=== PATIENT | female | born 2005 | race Caucasian/White ===

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

== ENCOUNTER 2024-04-18 15:54 | Outpatient (CLI) | payer OTHER, SELFPAY ==
--- OUTSIDE RECORDS SUMMARY | 2024-04-18 15:56 | XMS_ITS | Referral Summary ---
Author Organization [facility] Address [address] [place] [address] Phone Care Team Providers Care Thread Twister Name Role Phone Unavailable Primary Care Provider Jose e Source Comments [employer] (P) is fully rolled out on [employer]. Last update 10/16/08.[facility] Allergies No known active allergies Medications * Be aware that medications may not be up to date as of this document. Always verify current medications with patient. No known medications Social History Tobacco Use Types Packs/Day Years Used Date Smoking Tobacco: Never Assessed Comments Unknown Sex and Gender Information Value Date Recorded Sex Assigned at Not on file Legal Sex Female 11:41 AM ERP CONSULTANT Gender Identity Not on file Sexual Orientation Not on file Last Filed Vital Signs Vital Sign Reading Time Taken Comments Blood Pressure 114/67 05/13/2023 1:27 PM ERP CONSULTANT Pulse 78 05/13/2023 1:27 PM ERP CONSULTANT Temperature 36.7 C (98.1 F) 05/13/2023 11:23 AM ERP CONSULTANT Respiratory Rate 19 05/13/2023 11:24 AM ERP CONSULTANT Oxygen Saturation 97% 05/13/2023 1:27 PM ERP CONSULTANT Inhaled Oxygen Concentration - - Weight 54.4 kg (120 lb) 05/13/2023 11:23 AM ERP CONSULTANT Height - - Body Mass Index - - Plan of Treatment Not on file Insurance [employer]
--- OUTSIDE RECORDS SUMMARY | 2024-04-18 15:56 | XMS_ITS | Clinical Summary ---
Author Organization [facility] Address [address] [place] [address] Phone Care Team Providers Care Certified Orthotic Fitter Name Role Phone Unavailable Primary Care Provider Unavailabl e Source Comments [employer] is fully rolled out on [employer]. Last update 10/16/08.[facility] Allergies No known active allergies Medications * Be aware that medications may not be up to date as of this document. Always verify current medications with patient. 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 INSPECTOR Gender Identity Not on file Sexual Orientation Not on file Last Filed Vital Signs Vital Sign Reading Time Taken Comments Blood Pressure 114/67 05/13/2023 1:27 PM HEALTH INSPECTOR Pulse 78 05/13/2023 1:27 PM HEALTH INSPECTOR Temperature 36.7 C (98.1 F) 05/13/2023 11:23 AM HEALTH INSPECTOR Respiratory Rate 19 05/13/2023 11:24 AM HEALTH INSPECTOR Oxygen Saturation 97% 05/13/2023 1:27 PM HEALTH INSPECTOR Inhaled Oxygen Concentration - - Weight 54.4 kg (120 lb) 05/13/2023 11:23 AM HEALTH INSPECTOR Height - - Body Mass Index - - Plan of Treatment Health Maintenance Due Date Last Done Comments Well Child Check 09/27/2007 Chlamydia & Gonorrhea Screening 2016 Periodontal Maintenance 2018 HIV Screening 09/27/2019 PREVENTATIVE VISIT 2022 HEALTH MAINTENANCE PROTOCOL 09/27/2023 Imm: COVID-19 ( season) 2024 04/14/2021, 10/19/2020, 09/28/2020 Imm: Flu (#1) 01/13/2024 05/22/2012, 03/08/2011 Imm: DTaP/Tdap (4 - Td or Tdap) 01/13/2026 01/14/2016, 10/07/2009, 01/26/2006 Imm: Zoster (1 of 2) 2054 Imm: Hib Completed 01/26/2006 Imm: Pneumonia Peds or At-Risk less than 65 years Aged Out 01/26/2006 No longer chaparro gible based on patient's age to complete this topic Imm: HepA Completed 09/04/2008, 09/12/2006 Imm: HPV Completed 01/14/2016, 01/12/2015 Imm: HepB Completed 07/21/2019, 11/06/2013, 07/25/2005 Imm: Meningitis Completed 12/22/2020, 01/14/2016 Insurance [employer]
--- OUTSIDE RECORDS SUMMARY | 2024-04-18 15:56 | XMS_ITS | Continuity of Care Document ---
Author Name [facility] Organization [facility] Care Team Providers Care Felt Finisher Name Role Phone [facility] Unavailable Unavailable Medications Combined list of outpatient medications from Department of Defense and Veterans Affairs facilities.Medications provided include 1) outpatient medications from the last 15 months, and 2) patient-reported medications. Medication Details Route Status Patient Instructions Prescription Expires Prescription Number Last Dispense Date Ordering Provider Order Date Order Qty Source AMPHETAMINE SALT COMBO (DEXTROAMPH ETAMINE/AMP HETAMINE), 15 MG, TABLET, ORAL, LARSON, 100 ea. BOTTLE Active [id number] 2023 30 Pharmac y Data Transac tion Service Facilit y BACITRACIN (BACITRACIN ), 500 UNIT/G, OINT. (G), OPHTHALMIC, PERRIGO CO[employer] 3.5 g TUBE Cancele d [id number] : 2023 0 Pharmac y Data Transac tion Service Facilit y DEXTROAMPHE TAMINE-AMPH ET ER (dextroamph etamine sulf-saccha rate/amphet amine sulf-aspart ate), 20 MG, CAP ER 24H, ORAL, AMERIGEN/AN I PH, 100 ea. BOTTLE Cancele d [id number] : 2023 0 Pharmac y Data Transac tion Service Facilit y DEXTROAMPHE TAMINE-AMPH ET ER (dextroamph etamine sulf-saccha rate/amphet amine sulf-aspart ate), 20 MG, CAP ER 24H, ORAL, AMERIGEN/AN I PH, 100 ea. BOTTLE Cancele d [id number] : 2023 0 Pharmac y Data Transac tion Service Facilit y DEXTROAMPHE TAMINE-AMPH ET ER (dextroamph etamine sulf-saccha rate/amphet amine sulf-aspart ate), 30 MG, CAP ER 24H, ORAL, AMNEAL PHARMACE, 100 ea. BOTTLE Cancele d [id number] : 2023 0 Pharmac y Data Transac tion Service Facilit y DEXTROAMPHE TAMINE-AMPH ET ER (dextroamph etamine sulf-saccha rate/amphet amine sulf-aspart ate), 30 MG, CAP ER 24H, ORAL, [employer], 100 ea. BOTTLE Active [id number] 2023 30 Pharmac y Data Transac tion Service Facilit y DEXTROAMPHE TAMINE-AMPH ET ER (dextroamph etamine sulf-saccha rate/amphet amine sulf-aspart ate), 30 MG, CAP ER 24H, ORAL, HANDLEY PHARMACE, 100 ea. BOTTLE Active [id number] 2023 30 Pharmac y Data Transac tion Service Facilit y DEXTROAMPHE TAMINE-AMPH ET ER (dextroamph etamine sulf-saccha rate/amphet amine sulf-aspart ate), 30 MG, CAP ER 24H, ORAL, [employer]LEY [employer]ARMACE, 100 ea. BOTTLE Cancele d [id number] : 2023 0 Pharmac y Data Transac tion Service Facilit y DEXTROAMPHE TAMINE-AMPH ET ER (dextroamph etamine sulf-saccha rate/amphet amine sulf-aspart ate), 30 MG, CAP ER 24H, ORAL, SANDOZ, 100 ea. BOTTLE Active [id number] 2023 30 Pharmac y Data Transac tion Service Facilit y DEXTROAMPHE TAMINE-AMPH ET ER (dextroamph etamine sulf-saccha rate/amphet amine sulf-aspart ate), 30 MG, CAP ER 24H, ORAL, SANDOZ, 100 ea. BOTTLE Cancele d [id number] : 2023 0 Pharmac y Data Transac tion Service Facilit y DEXTROAMPHE TAMINE-AMPH ET ER (dextroamph etamine sulf-saccha rate/amphet amine sulf-aspart ate), 30 MG, CAP ER 24H, ORAL, SANDOZ, 100 ea. BOTTLE Active [id number] 2022 30 Pharmac y Data Transac tion Service Facilit y ERYTHROMYCI N (ERYTHROMYC IN BASE/ETHANO L), 2%, GEL (GM), TOPICAL, PERRIGO [employer]., 30 g JAR Cancele d [id number] : 2023 0 Pharmac y Data Transac tion Service Facilit y Social History Combined list of available smoking, tobacco, and other social history from Department of Defense and Veterans Affairs facilities. Social History Type Response Date Comment Sour e This section is an empty social history section. DoD
--- OUTSIDE RECORDS SUMMARY | 2024-04-18 15:56 | XMS_ITS | Continuity of Care Document ---
Author Organization [facility] Address [address] [place] [address] Phone Care Team Providers Care Preschool Teacher Aide Name Role Phone Reji Vogel MD Unavailable Unavailable Procedures Procedure Date Office/Outpatient Visit,[place], [facility] 2020 Advance Directives Directive Yes / No Effective Date File Name No Information Encounters Encounter Description Practice Location Reason(s) For Visit Diagnoses Date Provider Providers Copied on Encounter [facility], [address], [place], [place], [id number], [place] tel:[phone] No Information Jaspreet Mendoza. [facility] [place], [address] [place] [address], [place] [address], [place], [place], [id number] , [place]. tel:[phone] Office/Outpat ient Visit,[facility], [facility], [address], [facility] [place] [place], [id number], [place] tel:[phone] [facility] No Information Jaspreet Mendoza. [facility], [address] [place] [address], [facility] [address], [place], [place], [id number] , [place]. tel:[phone] Referring Provider: Yobani Hart, [facility] [address] [place], [address]. tel:[phone] Family History Family Member Type Diagnosis Age At Onset No Information Payers Payer name Insurance type Covered green party ID Authoriza tion(s) No Information Social [...]
[2024-04-18 21:14] LABS: Chlamydia DNA Amplified* NOT DETECTED (No Detected); GC DNA Amplified* NOT DETECTED (No Detected)
== END 2024-04-18 15:55 | disposition home or self-care (01) ==
LOC: NFLDREF 15:54
PROVIDERS: PCP Family Medicine; Visit Provider Registered Nurse
DX: N92.6 Irregular menstruation, unspecified (principal); Z11.3 Encounter for screening for infections with a predominantly sexual mode of transmission
CPT/HCPCS: 87491; 87591

== ENCOUNTER 2024-05-05 14:56 | Outpatient (CLI) | payer OTHER, SELFPAY ==
--- NOTE | 2024-05-05 15:00 | CRLHL7_ITS ---
For Patients: As a result of the Century Cures Act, medical imaging exams and procedure reports are released immediately into your electronic medical record. You may view this report before your referring provider. If you have questions, please contact your health care provider. INDICATION: Irregular menstruation. TECHNIQUE: Ultrasound pelvis transabdominal and transvaginal for better assessment or to better visualize the endometrium. Real-time sonographic images with spectral and color Doppler imaging of the ovaries were obtained. COMPARISON: None. FINDINGS: Uterus: 7.4 x 3.7 x 5.0 cm. Normal echotexture of the myometrium. No masses. Endometrium: Transvaginal imaging was performed to better evaluate the endometrium. A short segment of the left arm of the IUD appears to be imbedded in the left myometrium. Otherwise IUD appears to be in appropriate position. No sign of endometrial mass or fluid. Right ovary 3.6 x 1.5 x 2.4 centimeters. Left ovary 3.7 x 2.2 x 2.5 centimeters. No ovarian or adnexal masses. Normal arterial and venous blood flow is demonstrated in both ovaries. Cul-de-sac: Trace free fluid. IMPRESSION: A short segment of the left arm of the IUD appears to be imbedded in the left myometrium. Otherwise, IUD appears to be in appropriate position. Unremarkable pelvic ultrasound for age. Dictated by Raymundo Donovan MD @ 05/05/2024 4:54:17 PM (Electronically Signed)
== END 2024-05-05 14:57 | disposition home or self-care (01) ==
LOC: US 14:57
PROVIDERS: PCP Family Medicine; Visit Provider Registered Nurse
DX: N92.6 Irregular menstruation, unspecified (principal)
CPT/HCPCS: 76830; 76856